=== PATIENT | male | born 1975 | race Caucasian/White ===

== ENCOUNTER 2020-07-09 08:07 | Observation (INO) | payer OTHER, SELFPAY ==
[2017-06-14 11:07] VITALS: BMI 23.7
[2020-07-09] VITALS (22 sets, daily range): BP systolic 108–146; BP diastolic 72–110; PULSE 79–169; RESP 6–22; TEMP 36.2–36.9; O2SAT 90–98; BMI 24.4; BMI 24.1; BMI 24.2
--- NOTE | 2020-07-09 08:18 | RAD_ITS ---
STUDY: X-RAY CHEST REASON FOR EXAM: Male, 44 years old. CHEST PALPITATIONS, HX AFIB TECHNIQUE: PA and lateral views of the chest. COMPARISON: None. FINDINGS: EKG electrodes are seen. The lungs are clear and expanded. Scattered calcified granulomas. There is no demonstrated pleural abnormality. Normal size heart. Normal mediastinum and blanca. Normal visualized pulmonary arteries. Normal visualized aortic arch and descending thoracic aorta. Normal visualized thoracic spine. Normal visualized ribs, clavicles, and shoulders. There is no demonstrated abnormality of the visualized soft tissue structures of the upper abdomen. RAD/Chest 1 View (Portable) IMPRESSION: Normal x-ray examination of the chest. Electronically Signed: Ralph Gomez, at 9:01 EDT , Service support ,
--- NOTE | 2020-07-09 08:19 | ED.DCSUM_ITS ---
History of Present Illness Chief Complaint: Palpitations Informant: Patient Narrative: Patient is a 44-year-old male who presents to the emergency department for palpitations, chest tightness. He states that this has been ongoing for some time now but states that it got much worse this morning. He does have a history of atrial fibrillation and has had these symptoms before in the past. He took himself off of anticoagulation as he did not like how it made him feel. He is not on any rate control medications. He only takes his diabetic medications. He currently denies any shortness of breath. Has not had any leg swelling or calf pain. Denies any recent illness including any cough, cold, congestion. No fevers or chills. Denies any nausea/vomiting or diarrhea. Patient is a current every day smoker. Does admit to drinking 1-2 bottles of wine per day. He states he has gone through withdrawal before in the past. No history of seizures. Denies any lightheadedness or syncopal episodes. Past Medical History - Allergies and Home Meds Allergies/Adverse Reactions: Allergies No Known Allergies Allergy (Verified 07/09/20 08:25) Past Medical History: - - Atrial fibrillation, diabetes, hypertension Smoking Status: Current every day smoker Alcohol: Heavy Drugs: None - Family History Maternal Family History: Reports: Diabetes, Hypertension Paternal Family History: Reports: - - of cocaine overdose Review of Systems All systems negative except as indicated General: Denies: Chills, Fever, Sweats Eyes: Denies: Visual changes - bilaterally, Diplopia ENT: Denies: Rhinorrhea, Sore throat Cardiovascular: Reports: Chest pain, Palpitations, Heart racing Respiratory: Denies: Dyspnea, Cough Gastrointestinal: Denies: Abdominal pain, Nausea, Vomiting, Diarrhea Genitourinary: Denies: Dysuria, Hematuria, Frequency Musculoskeletal: Denies: Back pain, Swelling, Extremity Pain Skin: Denies: Rash, Wounds Neurological: Denies: Headache, Weakness, Numbness Physical Exam Vital Signs/Narrative: Vital Signs Temp Pulse Resp BP Pulse Ox 07/09/20 08:09 97.2 F L 79 22 H 138/110 H 98 Inital Vital Signs reviewed: Yes General: Well nourished, Well developed, - - Patient appears flushed and anxious. Head: Normocephalic, Atraumatic Eyes: Perrl, EOMI ENT: Moist mucous membranes, No rhinorrhea Neck: Supple, Nontender Cardiovascular: No murmurs, Irregular, Tachycardia Respiratory: No distress, CTA bilaterally, Chest nontender Abdomen: Soft, Nontender, Nondistended, Normal bowel sounds Back: Nontender, Normal Inspection Extremities: Nontender, No edema. Negative for: Calf Tenderness Skin: Normal color, No rash Neurological: Alert, Oriented x3, Cranial nerves II-XII grossly intact, Normal Strength, Normal Sensation Psychological: Normal affect, Normal Mood Diagnostic/Tx/Re-eval - EKG Initial EKG Interpretation: - - Rate of 180 bpm and an irregularly irregular rhythm. Otherwise normal intervals. Normal axis. No ST elevations or depressions appreciated. No T wave abnormalities. - Medical Decision Making Patient presents to the ED for palpitations. Upon arrival to the ED his heart rate is in the 180s. He does have a history of atrial fibrillation and took himself off of his anticoagulation. Patient's blood pressure has been stable throughout ED stay. Given a bolus and infusion of Cardizem. This did bring the heart rate down slightly. Was given a second bolus per hospital request. His blood glucose level is slightly high. Liver enzymes are mildly elevated as well.. He does have a history of significant alcohol use and has gone through withdrawal before in the past. Want to be monitored for this. Will bring into the hospital for further evaluation and management. He has been started on a heparin drip as well. - Critical Care Time Critical care time (excluding procedures): 30-74 minutes, Discussing w/Patient &/or Family/Executive Director, Arranging Admission or Transfer, Performing Direct Patient Care at Bedside ED Disposition - Plan for ED Patient: Disposition: Acute Care Hospital [facility] Diagnosis: Atrial fibrillation with RVR, Palpitations, Hyperglycemia, Elevated liver enzymes
[2020-07-09] MEDS: dilTIAZem 25 MG/5 ML Vial 15 MG IV BOLUS ×2 (08:21→11:07)
[2020-07-09] MEDS: 0.9% Normal Saline 1,000 ML 1000 ML IV (08:21)
[2020-07-09 08:38] LABS: Absolute Neutrophil Count 2.9 X10^3/uL (2.0-7.7); Basophil# 0.05 X10^3/uL; Basophil% 0.7 % (0-1); Eosinophil# 0.12 X10^3/uL; Eosinophils% 1.7 % (0-5); Hematocrit 43.7 % (40-54); Mean Corp Hgb Conc 36.6 g/dL (32-36); Mean Corpuscular Hgb 37.1 pg (27.0-32.0); Mean Corpuscular Volume 101.4 fL (80-94); Mean Platelet Vol. 9.8 fl (6.2-12.0); Monocyte# 0.67 X10^3/uL; Monocyte% 9.7 % (0-10); NRBC Flagged by Analyzer 0 % (0-5); Neutrophil # 2.92 X10^3/uL (2.7-7.7); Neutrophil % 42.5 % (47-70); Platelet Count 123 K/mm3 (150-450); RBC Distribution Width SD 44.6 fl (35.1-43.9); Red Blood Count 4.31 M/mm3 (4.6-6.2); White Blood Count 6.9 K/mm3 (4.4-11.0)
[2020-07-09 08:44] LABS: AST(SGOT) 56 U/L (15-37); Alanine Aminotransfer ALT/SGPT 62 U/L (16-61); Albumin, Serum 3.6 g/dL (3.2-5.0); Alkaline Phosphatase 89 U/L (45-117); Anion Gap 10 (5-15); BUN 6 mg/dL (7-18); BUN/Creat Ratio 7.9 RATIO (10-20); Bilirubin, Direct 0.36 mg/dL (0.00-0.30); Chloride 102 mmol/L (98-107); Creatinine, Serum 0.76 mg/dL (0.70-1.30); EST Glomerular Filtration Rate 119 mL/min (>60); Est Glom Filt Rate - Afr Amer 144 mL/min (>60); Estimated Creatinine Clearance 147.21 ml/min; Globulin 4.9 g/dL (2.2-4.2); Glucose 268 mg/dL (74-106); Magnesium 1.6 mg/dL (1.6-2.6); Potassium 3.7 mmol/L (3.5-5.1); Protein, Total 8.5 g/dL (6.4-8.2); Sodium Level 135 mmol/L (136-145)
[2020-07-09] MEDS: Heparin Injection (Vial) 5,000 UNIT/ML VIAL 6000 UNIT IV (08:47)
[2020-07-09 08:49] LABS: International Normalized Ratio 1.1; Prothrombin Time (Protime)PT. 13.6 SECONDS (11.7-14.9)
[2020-07-09 08:50] LABS: Partial Thromboplast Time 27.9 Seconds (24.1-36.2)
--- NOTE | 2020-07-09 10:14 | NURSING ---
[facility] AFIB
[2020-07-09] MEDS: Enoxaparin 100 MG/ML Syringe 90 MG SC ×2 (13:09→22:41)
[2020-07-09] MEDS: Acetaminophen 325 MG Tablet 650 MG PO (13:09)
--- NOTE | 2020-07-09 13:11 | PCM.HP.STD ---
Problem List (1) Atrial fibrillation with RVR Status: Acute (2) Diabetes Status: Chronic Qualifiers: Diabetes mellitus type: type 2 (3) Alcoholism Status: Chronic (4) Thrombocytopenia Status: Chronic (5) Elevated liver enzymes Status: Chronic History of Present Illness Date of Admission: 07/09/20 Chief Complaint: palpitations The patient is a 44 year old M with pmhx pAfib, DMt2, alcoholism drinking approx 2 bottles of wine daily, who presented to the ER with palpitations. He states he had intermittent palpitations for years. He had Afib in the past and an ablation 2 years ago in [facility]. He does not follow a freight manager or take meds for afib. This AM he got out of bed and was lightheaded. 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 He came to the ER and was found to have Afib RVR. He was given 2x15mg bolus of cardizem and started on a cardizem drip however remains tachycardic. He has no further chest pain. He has no SOB. No LE edema. He denies drug use. He smokes about 1 ppd. [] Past Medical History Past Medical History (Chronic Problems): Chronic Problems Elevated liver enzymes (Chronic) Diabetes (Chronic) Alcoholism (Chronic) Thrombocytopenia (Chronic) Allergies No Known Allergies Allergy (Verified 07/09/20 08:25) Home Medications: Ambulatory Orders Medication Instructions Recorded Metformin HCl 1,000 mg PO BID 07/09/20 Nortriptyline HCl [Pamelor] 20 mg PO TID 07/09/20 glipiZIDE [Glucotrol] 10 mg PO DAILY@0730 07/09/20 traZODone [Desyrel] 50 mg PO QHS PRN 07/09/20 Surgical History: - - childhood skin surgery to remove birthmar, Psychiatric History: No pertinent psych hx Lives: Alone Smoking Status: Current every day smoker Tobacco Use: Cigarettes Alcohol: Heavy Drugs: None - *Family History Maternal History Items: Diabetes, Hypertension Paternal History Items: - - of cocaine overdose Review of Systems Constitutional: Denies: Chills, Fever, Weight Change HEENT: Denies: Head Aches, Sinus Congestion, Sinus Drainage Cardiovascular: Reports: Chest Pain, Light Headedness, Palpitations. Denies: Edema Respiratory: Denies: Cough, Shortness of Breath, Shortness of breath at rest, Sputum production Gastrointestinal: Denies: Abdominal Pain, Nausea, Vomiting Genitourinary: Denies: Dysuria Musculoskeletal: Denies: Joint Pain, Joint Tenderness Skin: Denies: Rash, Wounds Neurological: Denies: Numbness, Tingling, Focal weakness Psychiatric: Denies: Anxiety, Depression, Homicidal Ideations, Suicidal Ideations Hematologic/ Lymphatic: Denies: Easy Bruising, Easy Bleeding VTE Information - Inpt Only VTE Present on Admission: No VTE Mechan Device Prophylaxis: None VTE Pharm Prophylaxis ordered?: Yes Patient Problems: Active and Suspected Problems Atrial fibrillation with RVR (Acute) Palpitations (Acute) Hyperglycemia (Acute) - Physical Exam Vitals/I&O's: Vital Signs Temp Pulse Resp BP Pulse Ox 98.1 F 115 H 18 126/76 H 92 07/09/20 11:43 07/09/20 12:20 07/09/20 11:43 07/09/20 11:43 07/09/20 11:43 Oxygen Delivery Method Room Air Weight: 187 lb 13.341 oz Body Mass Index (BMI) 24.1 Intake and Output for Last 24 Hours 07/07/20 07/08/20 07/09/20 23:59 23:59 23:59 Intake Total 1006.50 / 1006.50 Output Total 0 / 0 Balance 1006.50 / 1006.50 General: Alert, Oriented x3, Cooperative HEENT: Atraumatic, PERRLA, EOMI, Normocephalic Neck: Supple, No JVD, Negative Carotid Bruits Lungs: Clear to auscultation, Normal air movement Cardiovascular: No murmurs, Irregular Rate, Tachycardic Abdomen: Bowel Sounds Present, Soft, Non Tender Extremities: No edema, Capillary Refill Less than 3 Seconds Skin: No rashes, No breakdown Musculoskeletal: No Tenderness to Palpation of Joints or Extremities Neurological: Cranial nerves II-XII grossly intact Psych/Mental Status: Normal Affect, Appropriate, Alert and oriented to time, place, person, mood and affect Laboratory Results 07/09/20 08:10: WBC 6.9, RBC 4.31 L, Hgb 16.0, Hct 43.7, MCV 101.4 H, MCH 37.1 H, MCHC 36.6 H, RDW Std Deviation 44.6 H, RDW Coeff of Khoa 12.0, Plt Count 123 L, MPV 9.8, Immature Gran % (Auto) 0.400, Neut % (Auto) 42.5 L, Lymph % (Auto) 45.0 H, Lake % (Auto) 9.7, Eos % (Auto) 1.7, Baso % (Auto) 0.7, Absolute Neuts (auto) 2.9, Absolute Lymphs (auto) 3.10, Nucleated RBC % 0 07/09/20 08:10: Sodium 135 L, Potassium 3.7, Chloride 102, Carbon Dioxide 23.0, Anion Gap 10, BUN 6 L, Creatinine 0.76, Estim Creat Clear Calc 147.21, Est GFR (MDRD) Af Amer 144, Est GFR (MDRD) Non-Af 119, BUN/Creatinine Ratio 7.9 L, Glucose 268 H, Calcium 8.0 L, Magnesium 1.6, Total Bilirubin 0.80, Direct Bilirubin 0.36 H, AST 56 H, ALT 62 H, Alkaline Phosphatase 89, Troponin I < 0.015, Total Protein 8.5 H, Albumin 3.6, Globulin 4.9 H 07/09/20 08:10: PT 13.6, INR 1.1, APTT 27.9 Current Medications Acetaminophen (Tylenol) 650 mg PO Q6H PRN PRN PRN Reason: Pain Score 1-10/Temp > 100.7 F Last Admin: 07/09/20 13:09 Dose: 650 mg Documented by: Enoxaparin Sodium (Lovenox) 90 mg SC Q12 [facility] Glipizide (Glucotrol) 10 mg PO DAILY@0730 [facility] Diltiazem HCl 125 mg/ Dextrose 125 mls @ 5 mls/hr IV .Q25H CARMEN; Protocol Sodium Chloride () 250 mls @ 15 mls/hr IV .[id number] PRN PRN Reason: Saline Flush Sodium Chloride () 250 mls @ 15 mls/hr IV .[id number] PRN PRN Reason: Additional IVPB Infusion Insulin Human Lispro (Humalog Kwikpen (Bkc)) 0 unit SC ACHS CARMEN; Protocol Metformin HCl (Glucophage) 1,000 mg PO BIDCM [facility] Nicotine (Nicoderm Cq (Pbkc)) 21 mg TRANSDERM. DAILY CARMEN Sodium Chloride () 10 - 40 ml IV UD PRN PRN Reason: SALINE FLUSH Assessment/Plan All Active Problems Atrial fibrillation with RVR (Acute) Palpitations (Acute) Hyperglycemia (Acute) 1. pAfib with RVR - ablation 2 years ago in [place] with no follow up car. Ongoing intermittent palpitations since then worse this AM. Pt not on rate control agents. Given IV cardizem x 2 and started on drip. heparin drip changed to lovenox however use with caution with thrombocytopenia. Cardiology consulted. Obtain echo. Mag is low. Trop neg. 2. DMt2 - hold orals, provide SSI. 3. Alcoholism - raises supsicion for holiday heart. CIWA protocol. He drinks at least 2 bottles of wine per day however he is unsure of the quantity as he drinks his wine from a box and is not using actual bottles. Initiate ativan or phenobarb if he becomes symptomatic. Macrocytosis but no anemia, possible folate deficiency given alcoholism - folate/b12 ordered. DVT ppx: lovenox This patient was seen by Romario Bobby PA-C under the supervision of Doctor Feng.
[2020-07-09] MEDS: Insulin Lispro 100 UNIT/ML INSULN.PEN SC ×3 (13:17→22:40)
[2020-07-09 13:26] LABS: Bedside Glucose 217 mg/dL (70-110)
[2020-07-09] MEDS: Ondansetron ODT 4 MG Tablet PO (13:44)
[2020-07-09 14:32] LABS: Vitamin B12 561 pg/mL (211-911)
[2020-07-09 14:43] LABS: Thyroid Stim Hormone (TSH) 1.89 uIU/mL (0.358-3.74)
--- NOTE | 2020-07-09 15:12 | PCM.CONS.C ---
Problem List (1) Atrial fibrillation with RVR Status: Acute (2) Chest pain Status: Acute (3) Hyperglycemia Status: Chronic (4) Alcoholism Status: Chronic Reason for Consult Date of Consultation: 07/09/20 History of Present Illness: The patient is a 44 year old white male with a past cardiovascular history which apparently has included paroxysmal atrial fibrillation with spontaneous conversion to sinus rhythm as well as requirements of synchronized biphasic DC cardioversion to regain sinus rhythm superimposed upon a history of hyperglycemia and alcohol abuse (significant wine intake) who is referred for evaluation of atrial fibrillation and chest discomfort. The patient states that he has undergone evaluation for atrial fibrillation in the past. He believes this occurred at [facility] in [place], [place]. He states that he had an episode where he had spontaneous conversion to sinus rhythm and an episode requiring a synchronized biphasic DC cardioversion to sinus rhythm. He recalls undergoing evaluation with a transthoracic echocardiogram. He does not recall any other cardiovascular testing. 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 He knows he has been going in and out of atrial fibrillation for quite some time. He states he can feel his heart pounding and going fast. He will take a nap and then sometimes wake up and he feels he is back in normal rhythm. 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 He notes this morning while at work as a corporate executive chef he felt his heart rate increase as well as had chest discomfort. Thus he elected to present to the hospital for further evaluation. He was found to be in atrial fibrillation with rapid ventricular response. His troponin I level was negative. His ECG demonstrated atrial fibrillation with rapid ventricular response. He was placed in the PCU for further evaluation and care. He was started on medical management with IV diltiazem and anticoagulant therapy with subcutaneous Lovenox. His heart rate has slowed somewhat but he still remains in atrial fibrillation with episodes of RVR. He notes when he is in atrial fibrillation is when he has his chest discomfort. Otherwise he states he does not necessarily feel chest discomfort or have episodes of shortness of breath or dyspnea. There is been no orthopnea, PND, or peripheral pitting edema. There is been no near syncope or syncope. He states he has been managing his hyperglycemia. He states that he drinks anywhere from 1-2 bottles of wine per day depending upon his stress level . [] Past Medical History Allergies/Adverse Reactions: Allergies No Known Allergies Allergy (Verified 07/09/20 08:25) Home Medications: Ambulatory Orders Medication Instructions Recorded Metformin HCl 1,000 mg PO BID 07/09/20 Nortriptyline HCl [Pamelor] 20 mg PO TID 07/09/20 glipiZIDE [Glucotrol] 10 mg PO DAILY@0730 07/09/20 traZODone [Desyrel] 50 mg PO QHS PRN 07/09/20 Past Medical History (Chronic Problems): Chronic Problems Hyperglycemia (Chronic) Elevated liver enzymes (Chronic) Diabetes (Chronic) Alcoholism (Chronic) Thrombocytopenia (Chronic) Surgical History: - - childhood skin surgery to remove birthmar, Psychiatric History: No pertinent psych hx - *Family History Maternal History Items: Diabetes, Hypertension Paternal History Items: - - of cocaine overdose Lives: Alone Smoking Status: Current every day smoker Tobacco Use: Cigarettes Alcohol: Heavy Drugs: None Review of Systems - Review of Systems General: Denies: Fever, Night Sweats, Fatigue Cardiovascular: Reports: Chest Discomfort, Palpitations. Denies: Shortness of Breath, Orthopnea, PND, Peripheral Edema, Lightheadedness, Dizziness, Near Syncope, Syncope Respiratory: Denies: Cough, Sputum Production, Hemoptysis Gastrointestinal: Denies: Hematemesis, Hematochezia, Melena Genitourinary: Denies: Dysuria, Hematuria Skin: Denies: Rash Subjectve: This is a 44-year-old white male who appears to be resting comfortably at the moment in no acute distress. Objective: Vital Signs Temp Pulse Resp BP Pulse Ox 98.1 F 109 H 19 H 129/96 H 91 07/09/20 11:43 07/09/20 13:09 07/09/20 13:09 07/09/20 13:09 07/09/20 13:09 Oxygen Delivery Method Room Air Weight: 187 lb 13.341 oz Body Mass Index (BMI) 24.1 Intake and Output for Last 24 Hours 07/07/20 07/08/20 07/09/20 23:59 23:59 23:59 Intake Total 1112.08 / 1112.08 Output Total 0 / 0 Balance 1112.08 / 1112.08 General: Awake, Alert, Oriented x 3, Cooperative, No Acute Distress HEENT: Atraumatic, Normocephalic, PERRL, EOMI, Sclera Non Icteric Neck: Supple, Good ROM, No JVD Lungs: Clear to auscultation Cardiovascular: Irregular Rhythm, Normal S1, Normal S2 Vascular: No Carotid Bruits Abdomen: Bowel Sounds Present, Soft, Non Tender Extremities: No Cyanosis, No Clubbing, No edema Neurological: No Focal Motor or Sensory Deficit Psych/Mental Status: Appropriate 07/09/20 08:10: WBC 6.9, RBC 4.31 L, Hgb 16.0, Hct 43.7, MCV 101.4 H, MCH 37.1 H, MCHC 36.6 H, Plt Count 123 L, MPV 9.8, Immature Gran % (Auto) 0.400, Neut % (Auto) 42.5 L, Lymph % (Auto) 45.0 H, [place] % (Auto) 9.7, Eos % (Auto) 1.7, Baso % (Auto) 0.7, Absolute Neuts (auto) 2.9, Nucleated RBC % 0 07/09/20 08:10: Sodium 135 L, Potassium 3.7, Chloride 102, Carbon Dioxide 23.0, Anion Gap 10, BUN 6 L, Creatinine 0.76, Est GFR (MDRD) Af Amer 144, Est GFR (MDRD) Non-Af 119, BUN/Creatinine Ratio 7.9 L, Glucose 268 H, Calcium 8.0 L, Magnesium 1.6, Total Bilirubin 0.80, Direct Bilirubin 0.36 H, Troponin I < 0.015 07/09/20 08:10: PT 13.6, INR 1.1, APTT 27.9 Rhythm: Atrial fibrillation EKG: With RVR ECHO: Pending CXR: Preliminary evaluation: No acute cardiopulmonary disease process appreciated: Please see official report Assessment/Plan 1. Atrial fibrillation with RVR The patient has a history of atrial fibrillation. He states he can tell when his atrial fibrillation comes and goes. He believes this is been happening on and off for quite some time. He has been ignoring it with respect to any further medical evaluation or care. At the present time he remains in atrial fibrillation with episodes of RVR. His initial troponin I level is negative. His ECG demonstrated no acute ECG changes. An echocardiogram is pending. At this time he is on rate control therapy with IV diltiazem. He has been placed on subcutaneous Lovenox therapy for anticoagulation. It may be reasonable to attempt to regain sinus rhythm, as he has been paroxysmal, with the addition of an antiarrhythmic agent. However the choice of an antiarrhythmic agent in this patient, at his age, could include agents such as sotalol, flecainide, or dofetilide. Prior to choosing an antiarrhythmic agent it would be reasonable to further evaluate the patient with a transthoracic echocardiogram to evaluate his LV systolic function and for the possibility of any underlying CAD process with a pharmacologic stress nuclear imaging study. If the patient does not regain sinus rhythm with rate control therapy and an antiarrhythmic agent can be chosen based upon his cardiovascular studies then perhaps this would help him eventually regain and/or maintain sinus rhythm. The patient will need to continue anticoagulant therapy. If the patient does not regain sinus rhythm either with rate control therapy alone or with antiarrhythmic therapy that he would also need to be considered, once he is appropriately anticoagulated, for another attempt at synchronized biphasic DC cardioversion. However he was told that based upon his history this may only be a temporary process. The patient may need to be further evaluated by electrophysiology for consideration for EPS/RFA. The meantime the patient does need to care for his other medical conditions as well as to discontinue his alcohol intake. 2. Hyperglycemia The patient has a history of hyperglycemia. He will need continued evaluation care per internal medicine. 3. Alcohol abuse The patient does intake a significant amount of wine. This may be contributing process to his atrial dysrhythmia. It may also be a contributing process to his laboratory abnormalities such as thrombocytopenia and his elevated hepatic transaminase levels. Patient's case has been discussed and reviewed with the patient as well as with Dr. Feng. This note was generated using a voice recognition system and there may be incorrect words, spelling or punctuation that were not noted when reviewing the office note prior to saving.
[2020-07-09] MEDS: 0.9% Saline Lock 10 ML Syringe IV (15:40)
[2020-07-09] MEDS: Digoxin 250 MCG/ML Ampul 500 MCG IV (15:40)
[2020-07-09] MEDS: metFORMIN HCl 1,000 MG Tablet 1000 MG PO (16:40)
[2020-07-09] MEDS: chlordiazePOXIDE 25 MG Capsule PO ×2 (18:22→22:40)
[2020-07-09] MEDS: Folic Acid 1 MG Tablet PO (18:22)
[2020-07-09] MEDS: Thiamine Hydrochloride 100 MG Tablet PO (18:22)
[2020-07-09] MEDS: proMETHazine 25 MG Tablet 12.5 MG PO (20:02)
[2020-07-09] MEDS: MELATONIN 10 MG TABLET PO (23:32)
[2020-07-10] VITALS (20 sets, daily range): BP systolic 113–145; BP diastolic 70–91; PULSE 70–98; RESP 12–26; TEMP 36.4–36.9; O2SAT 89–97
--- NOTE | 2020-07-10 05:55 | EKG12_ITS ---
Test Reason : AM EKG Blood Pressure : / mmHG Vent. Rate : 078 BPM Atrial Rate : 416 BPM P-R Int : 000 ms QRS Dur : 096 ms QT Int : 412 ms P-R-T Axes : 000 -03 113 degrees QTc Int : 469 ms Atrial fibrillation T wave abnormality, consider lateral ischemia Prolonged QT Abnormal ECG When compared with ECG of 14-JUN-2017 11:25, Atrial fibrillation has replaced Sinus rhythm Inverted T waves have replaced nonspecific T wave abnormality in Lateral leads Confirmed by KRAIG OLSON, ALIVIA ([id number]), order editor KARLOS HALL ([id number]) on 07/15/2020 1:41:25 PM Referred By: LUIS DANIEL Confirmed By:COSME CORNELL MD
[2020-07-10 07:00] LABS: Anion Gap 6 (5-15); BUN 7 mg/dL (7-18); BUN/Creat Ratio 11.8 RATIO (10-20); Calcium,Total 7.7 mg/dL (8.5-10.1); Chloride 100 mmol/L (98-107); Cholesterol 193 mg/dL (200); Creatinine, Serum 0.59 mg/dL (0.70-1.30); EST Glomerular Filtration Rate 158 mL/min (>60); Est Glom Filt Rate - Afr Amer 191 mL/min (>60); Estimated Creatinine Clearance 189.63 ml/min; Glucose 208 mg/dL (74-106); High Density Lipoprotein 38 mg/dL; Magnesium 1.9 mg/dL (1.6-2.6); Potassium 3.4 mmol/L (3.5-5.1); Sodium Level 134 mmol/L (136-145); Triglycerides 328 mg/dL; Very Low Density Lipoprotein 66 mg/dL (5-40)
[2020-07-10 07:15] LABS: Bedside Glucose 181 mg/dL (70-110)
[2020-07-10 07:15] LABS: Bedside Glucose 197 mg/dL (70-110)
[2020-07-10 07:21] LABS: Bedside Glucose 218 mg/dL (70-110)
--- NOTE | 2020-07-10 09:46 | PCM.PN.CARD ---
Subjectve: The patient states he notes his heart rate is decreased. He feels better overall. Objective: Vital Signs Temp Pulse Resp BP Pulse Ox 98.5 F 82 16 135/85 H 94 07/10/20 05:00 07/10/20 08:00 07/10/20 08:00 07/10/20 08:00 07/10/20 08:00 Oxygen Delivery Method Room Air Weight: 187 lb 13.341 oz Body Mass Index (BMI) 24.1 Finger Stick Blood Glucose 2,349 Intake and Output for Last 24 Hours 07/08/20 07/09/20 07/10/20 23:59 23:59 23:59 Intake Total 1843.83 / 1858.83 150.5 / 150.5 Output Total 1000 / 1000 400 / 400 Balance 843.83 / 858.83 -249.5 / -249.5 General: Awake, Alert, Oriented x 3, Cooperative, No Acute Distress HEENT: Atraumatic, Normocephalic, PERRL, EOMI, Sclera Non Icteric Neck: Supple, Good ROM, No JVD Lungs: Clear to auscultation Cardiovascular: Irregular Rhythm, Normal S1, Normal S2 Abdomen: Bowel Sounds Present, Soft Extremities: No edema Neurological: No Focal Motor or Sensory Deficit Psych/Mental Status: Appropriate 07/10/20 06:14: Sodium 134 L, Potassium 3.4 L, Chloride 100, Carbon Dioxide 28.0, Anion Gap 6, BUN 7, Creatinine 0.59 L, Est GFR (MDRD) Af Amer 191, Est GFR (MDRD) Non-Af 158, BUN/Creatinine Ratio 11.8, Glucose 208 H, Calcium 7.7 L, Magnesium 1.9, Triglycerides 328 H, Cholesterol 193, LDL Cholesterol 89, VLDL Cholesterol 66 H, HDL Cholesterol 38 L Rhythm: Atrial fibrillation EKG: Atrial fibrillation; nonspecific T wave abnormality ECHO: Left ventricular systolic function is normal. The estimated ejection fraction is 60 %. Moderate concentric left ventricular hypertrophy. There is mild mitral annular calcification. Extension of the mitral annular calcification on the base of the posterior mitral valve leaflet. The left atrium is mildly enlarged. Mild (1+) mitral valve insufficiency. Mild tricuspid valve insufficiency. Mild focal aortic valve calcification. Mild (1+) eccentric aortic valve insufficiency. Right ventricular systolic pressure estimated to be 22 mmHg. Unable to assess diastolic dysfunction. Stress Test: Pending Medical Necessity - Tobacco Use Smoking Status: Current every day smoker Tobacco Use: Cigarettes Assessment/Plan 1. Atrial fibrillation with RVR The patient has a history of atrial fibrillation. He states he can tell when his atrial fibrillation comes and goes. He believes this is been happening on and off for quite some time. He has been ignoring it with respect to any further medical evaluation or care. At the present time he remains in atrial fibrillation. His initial troponin I level is negative. His ECG demonstrated no acute ECG changes. His echocardiogram is as noted. At this time he is on rate control therapy with IV diltiazem. He has been placed on subcutaneous Lovenox therapy for anticoagulation. The patient is proceeding with further evaluation with a pharmacologic stress nuclear imaging study based upon his concerns of his atrial dysrhythmia and his chest discomfort. Depending upon the findings he may or may not need further evaluation with diagnostic cardiac catheterization. In the interim he will continue medical therapy with attempt to convert his IV diltiazem to oral diltiazem. Going forward, depending upon his cardiac catheterization findings, his options may include rate control therapy and anticoagulant therapy and future attempt at synchronized biphasic DC cardioversion as well as outpatient EP consultation for possible EPS/RFA. The addition of antiarrhythmic therapy is an option although there may be some concern with respect to this based on the patient's alcohol intake. 2. Hyperglycemia The patient has a history of hyperglycemia. He will need continued evaluation care per internal medicine. 3. Alcohol abuse The patient does intake a significant amount of wine. This may be contributing process to his atrial dysrhythmia. It may also be a contributing process to his laboratory abnormalities such as thrombocytopenia and his elevated hepatic transaminase levels. He patient's case has been discussed and reviewed with the patient as well as with Dr. Feng. This note was generated using a voice recognition system and there may be incorrect words, spelling or punctuation that were not noted when reviewing the office note prior to saving.
--- NOTE | 2020-07-10 10:08 | STRESSREP_ITS ---
Stress Test Report Date: 07-10-2020 Procedure: Pharmacologic stress nuclear imaging study Indications: Atrial fibrillation; chest pain Consent: Per the patient Procedure: The patient underwent pharmacologic (Regadenoson) evaluation with a peak heart rate of 103 beats per minute (57 %predicted maximal heart rate) and a peak blood pressure of 122/74 mmHg. The baseline ECG demonstrated atrial fibrillation; nonspecific T wave abnormality. The peak pharmacologic ECG demonstrated no obvious ECG changes. There was a rare PVC during recovery. There was no complaint of chest discomfort during pharmacologic infusion or recovery. The examination was discontinued secondary to completion of protocol. Impression: 1. Pharmacologic (Regadenoson) evaluation 2. Peak pharmacologic ECG with continued atrial fibrillation with nonspecific T wave abnormality. 3. There were no cardiac dysrhythmias pretest, during pharmacologic infusion, or recovery. 4. Nuclear images pending Myocardial perfusion imaging study: Technique: The patient was injected with 12.0 millicuries of technetium 99m Cardiolite and subsequently rest SPECT Cardiolite nuclear imaging was obtained in the horizontal long, vertical long, and short axis views. The patient underwent pharmacologic (Regadenoson) evaluation with a peak heart rate of 103 beats per minute (57 % percent predicted maximal heart rate) and a peak blood pressure of 122/74 mmHg. The patient was injected with 33.2 millicuries of technetium 99m Cardiolite and subsequently stress SPECT Cardiolite nuclear imaging was obtained in the horizontal long, vertical long, and short axis views. A gated Cardiolite study at peak stress was obtained. Interpretation: Rest and stress SPECT Cardiolite nuclear imaging status post realignment, normalization, and attenuation correction demonstrate a small area of subtle diminished tracer uptake near the inferior apical segments without significant change between rest and stress. There is end systolic thickening and brightening. The gated Cardiolite study demonstrates myocardial thickening and inward wall motion. The reported LVEF is 53 %. Impression: 1. Rest and stress myocardial imaging demonstrate myocardial perfusion changes appearing compatible with the effects of physiologic apical thinning with no myocardial perfusion changes considered diagnostic for associated stress-induced myocardial ischemia. 2. The gated Cardiolite study reports an LVEF of 53 %. This note was generated with [employer] software. It may contain incorrect words, spelling, and punctuation that were not noted in checking the note before signing.
[2020-07-10] MEDS: metFORMIN HCl 1,000 MG Tablet 1000 MG PO (11:31)
[2020-07-10] MEDS: Folic Acid 1 MG Tablet PO (11:31)
[2020-07-10] MEDS: Thiamine Hydrochloride 100 MG Tablet PO (11:32)
[2020-07-10] MEDS: dilTIAZem CD 240 MG Capsule PO (11:32)
[2020-07-10] MEDS: chlordiazePOXIDE 25 MG Capsule PO ×2 (11:33→13:48)
[2020-07-10] MEDS: Insulin Lispro 100 UNIT/ML INSULN.PEN SC (11:34)
--- NOTE | 2020-07-10 12:59 | CASEMGMT ---
Pt to be sent home on xarelto at discharge and med e-scribed to [facility] retail pharmacy. Per navin Campos, pt's co-pay will be $50 but co-pay card to be applied. Daryl SCOTT CM
--- NOTE | 2020-07-10 13:02 | CASEMGMT ---
Assessment- SW completed assessment with patient at bedside. SW also verified patient and his contacts addresses and phone numbers. Living situation- Patient lives with his mom in a 1 story home. PCP: Patient does not have one, but SW did give him a list of primary care doctors Specialists: He has been seeing someone with [facility] for his alcohol use. Pharmacy: [facility] in [place]. He wants [facility] Pharmacy at d/c DME: None ADL's/IADL's: Independent Past SNF/rehab: None Past HH: None LW: None POA: None Plan: Patient is independent and does not have any discharge needs. 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 He is already talking with a counselor from [facility] for his alcohol use as he got a DUI. JIMBO gave him a PCP list. JIMBO also explained that the RN CM will check on the cost of his blood thinner before he leaves. Leonor ZAFAR TOMATO GRADER
[2020-07-10 13:06] LABS: Bedside Glucose 241 mg/dL (70-110)
[2020-07-10] MEDS: Enoxaparin 100 MG/ML Syringe 90 MG SC (13:48)
[2020-07-10] MEDS: 0.9% Saline Lock 10 ML Syringe IV (14:01)
--- NOTE | 2020-07-10 14:42 | PCM.DC.SUM ---
Discharge Date and Diagnosis - Problem List Patient Problems: Active and Suspected Problems Atrial fibrillation with RVR (Acute) Palpitations (Acute) Chest pain (Acute) Date of Admission: 07/09/20 Date of Discharge: 07/10/20 - Primary Discharge Diagnosis Acute Problems: Active Problems Atrial fibrillation with RVR (Acute) Palpitations (Acute) Chest pain (Acute) - Secondary Discharge Diagnosis Chronic Problems: Chronic Problems Hyperglycemia (Chronic) Elevated liver enzymes (Chronic) Diabetes (Chronic) Alcoholism (Chronic) Thrombocytopenia (Chronic) Hospital Course and Treatment Imaging Results: 07/10/20 05:55 Nuclear Stress Test - Chemical [NM] AM (NON MEDS) Interpretation: Rest and stress SPECT Cardiolite nuclear imaging status post realignment, normalization, and attenuation correction demonstrate a small area of subtle diminished tracer uptake near the inferior apical segments without significant change between rest and stress. There is end systolic thickening and brightening. The gated Cardiolite study demonstrates myocardial thickening and inward wall motion. The reported LVEF is 53 %. Impression: 1. Rest and stress myocardial imaging demonstrate myocardial perfusion changes appearing compatible with the effects of physiologic apical thinning with no myocardial perfusion changes considered diagnostic for associated stress-induced myocardial ischemia. 2. The gated Cardiolite study reports an LVEF of 53 %. 2D TTE: EF 60% mod LVH mild mitral annular calcification 1+ MVI mild TVI Mild focal AV calcification 1+ FOREST RVSP 22 mmHg RAD/Chest 1 View (Portable) IMPRESSION: Normal x-ray examination of the chest. [facility] Procedures: 2-D Echocardiogram, Stress test Summary of Care Provided: Hospital Course: The patient is a 44 year old M with pmhx of pAfib with prior cardioversion alcoholism, nicotine abuse, and DMt2 who presented to the ER with palpitations and CP. He was found to be in Afib with RVR. He was not on any rate control medications and did not follow a dismantler. He was given IV cardizem and admitted to PCU. Cardiology was consulted. Echo was obtained with results as above, preserved EF. He was taken for a stress test which was negative. He was transitioned successfully from cardizem drip to po cardizem. He was placed on xarelto for anticoagulation. He developed alcohol withdrawal while here and was treated with Librium. He drinks at least 2 bottles of wine per day and smokes about 1 ppd. He was discharged home in stable condition. He will need follow up with a PCP in 1-2 weeks and with cardiology as directed. This patient was seen by Romario Bobby PA-C under the supervision of Dr. Feng. [] Patient Problems: Active and Suspected Problems Atrial fibrillation with RVR (Acute) Palpitations (Acute) Chest pain (Acute) - Physical Exam Vitals/I&O's: Vital Signs Temp Pulse Resp BP Pulse Ox 98.2 F 89 21 H 133/80 H 96 07/10/20 11:12 07/10/20 13:50 07/10/20 13:50 07/10/20 13:50 07/10/20 13:50 Oxygen Delivery Method Room Air Weight: 187 lb 13.341 oz Body Mass Index (BMI) 24.1 Finger Stick Blood Glucose 2,349 Intake and Output for Last 24 Hours 07/08/20 07/09/20 07/10/20 23:59 23:59 23:59 Intake Total 1843.83 / 1858.83 344.25 / 344.25 Output Total 1000 / 1000 400 / 400 Balance 843.83 / 858.83 -55.75 / -55.75 General: Alert, Oriented x3, Cooperative HEENT: Atraumatic, PERRLA, EOMI, Normocephalic Neck: Supple, No JVD, Negative Carotid Bruits Lungs: Clear to auscultation, Normal air movement Cardiovascular: Regular rate, No murmurs, Irregular Rate Abdomen: Bowel Sounds Present, Soft, Non Tender Extremities: No edema, Capillary Refill Less than 3 Seconds Skin: No rashes, No breakdown Musculoskeletal: No Tenderness to Palpation of Joints or Extremities Neurological: Cranial nerves II-XII grossly intact Psych/Mental Status: Normal Affect, Appropriate, Alert and oriented to time, place, person, mood and affect Laboratory Results 07/09/20 08:10: Folate 7.40, TSH 1.89 07/09/20 16:39: POC Glucose 197 H 07/09/20 22:38: POC Glucose 181 H 07/10/20 06:14: Sodium 134 L, Potassium 3.4 L, Chloride 100, Carbon Dioxide 28.0, Anion Gap 6, BUN 7, Creatinine 0.59 L, Estim Creat Clear Calc 189.63, Est GFR (MDRD) Af Amer 191, Est GFR (MDRD) Non-Af 158, BUN/Creatinine Ratio 11.8, Glucose 208 H, Calcium 7.7 L, Magnesium 1.9, Triglycerides 328 H, Cholesterol 193, LDL Cholesterol 89, VLDL Cholesterol 66 H, HDL Cholesterol 38 L 07/10/20 06:33: POC Glucose 218 H 07/10/20 11:26: POC Glucose 241 H Current Medications Acetaminophen (Tylenol) 650 mg PO Q6H PRN PRN PRN Reason: Pain Score 1-10/Temp > 100.7 F Last Admin: 07/09/20 13:09 Dose: 650 mg Documented by: Chlordiazepoxide (Librium) 25 mg PO 4X/DAY [facility] Last Admin: 07/10/20 13:48 Dose: 25 mg Documented by: Enoxaparin Sodium (Lovenox) 90 mg SC Q12 [facility] Last Admin: 07/10/20 13:48 Dose: 90 mg Documented by: Folic Acid (Folic Acid) 1 mg PO DAILY@0800 [facility] Last Admin: 07/10/20 11:31 Dose: 1 mg Documented by: Glipizide (Glucotrol) 10 mg PO BIDAC [facility] Diltiazem HCl 125 mg/ Dextrose 125 mls @ 5 mls/hr IV .Q25H [facility]; Protocol Last Titration: 07/10/20 13:50 Dose: 0 mg/hr, 0 mls/hr Documented by: Sodium Chloride () 250 mls @ 15 mls/hr IV .[id number] PRN PRN Reason: Saline Flush Sodium Chloride () 250 mls @ 15 mls/hr IV .[id number] PRN PRN Reason: Additional IVPB Infusion Insulin Human Lispro (Humalog Kwikpen (Bkc)) 0 unit SC ACHS [facility]; Protocol Last Admin: 07/10/20 11:34 Dose: 4 units Documented by: Melatonin (Melatonin) 10 mg PO QHS PRN PRN Reason: insomnia Last Admin: 07/09/20 23:32 Dose: 10 mg Documented by: Metformin HCl (Glucophage) 1,000 mg PO BIDCM [facility] Last Admin: 07/10/20 11:31 Dose: 1,000 mg Documented by: Nicotine (Nicoderm Cq (Pbkc)) 21 mg TRANSDERM. DAILY [facility] Last Admin: 07/10/20 11:34 Dose: Not Given Documented by: Ondansetron HCl (Zofran Odt) 4 mg PO Q6H PRN PRN PRN Reason: NAUSEA Last Admin: 07/09/20 13:44 Dose: 4 mg Documented by: Promethazine HCl (Phenergan Tablet) 12.5 mg PO Q6H PRN PRN PRN Reason: NAUSEA/VOMITING Last Admin: 07/09/20 20:02 Dose: 12.5 mg Documented by: Sodium Chloride () 10 - 40 ml IV UD PRN PRN Reason: SALINE FLUSH Last Admin: 07/10/20 14:01 Dose: 10 ml Documented by: Thiamine HCl (Vitamin B1) 100 mg PO DAILYCM [facility] Last Admin: 07/10/20 11:32 Dose: 100 mg Documented by: Discharge Diet: Low fat/ Low Cholesterol, 2000 mg Sodium Diet Discharge Activity: Return to Normal Activity Home Medications: Medications to take at Discharge Metformin HCl 1,000 mg PO BID 07/09/20 Nortriptyline HCl [Pamelor] 20 mg PO TID 07/09/20 traZODone [Desyrel] 50 mg PO QHS PRN 07/09/20 Diltiazem CD [Cardizem CD] 240 mg PO DAILY #30 cap 07/10/20 Rivaroxaban [Xarelto] 20 mg PO DAILY #30 tab 07/10/20 glipiZIDE [Glucotrol] 10 mg PO BIDAC #60 tab 07/10/20 Following Prescriptions Were Given to Patient: Diltiazem CD [Cardizem CD] 240 mg PO DAILY #30 cap Transmission Status: Received by [facility] glipiZIDE [Glucotrol] 10 mg PO BIDAC #60 tab Transmission Status: Received by [facility] Rivaroxaban [Xarelto] 20 mg PO DAILY #30 tab Transmission Status: Received by [facility] Primary Care Physician: NOT,DEFINED [NON-STAFF] - Please follow up with your Primary Care Physician in: 1-2 weeks Please Follow Up With: Levy Tierney MD When: as directed Disposition: Home Minutes spent on discharge:: 35 Patient Condition:: Stable Medical Necessity - Tobacco Use Smoking Status: Current every day smoker Tobacco Use: Cigarettes Meaningful Use Info Meaningful Use Diagnoses (Choose all that apply): None applicable
--- NOTE | 2020-07-10 14:45 | PCM.DC ---
- Discharge Diagnoses Current Active Problems: Current Active and Chronic Problems Atrial fibrillation with RVR (Acute) Palpitations (Acute) Hyperglycemia (Chronic) Elevated liver enzymes (Chronic) Diabetes (Chronic) Alcoholism (Chronic) Thrombocytopenia (Chronic) Chest pain (Acute) You will use the following diet at home:: Cardiac Your food should be the consistency of: Regular Your liquids should be the consistency of: Regular/Thin Discharge Activity: Return to Normal Activity Call your doctor if you observe: Shortness of breath, Dizziness, Chest pain, Increased palpitations (irregular heartbeat) Allergies/Adverse Reactions: Allergies No Known Allergies Allergy (Unverified 07/09/20 08:25) Medications to take at Discharge Metformin HCl 1,000 mg PO BID 07/09/20 Nortriptyline HCl [Pamelor] 20 mg PO TID 07/09/20 traZODone [Desyrel] 50 mg PO QHS PRN 07/09/20 Diltiazem CD [Cardizem CD] 240 mg PO DAILY #30 cap 07/10/20 Rivaroxaban [Xarelto] 20 mg PO DAILY #30 tab 07/10/20 glipiZIDE [Glucotrol] 10 mg PO BIDAC #60 tab 07/10/20 The following prescriptions were given: Diltiazem CD [Cardizem CD] 240 mg PO DAILY #30 cap Transmission Status: Received by [facility] glipiZIDE [Glucotrol] 10 mg PO BIDAC #60 tab Transmission Status: Received by [facility] Rivaroxaban [Xarelto] 20 mg PO DAILY #30 tab Transmission Status: Received by [facility] Primary Care Physician: NOT,DEFINED [NON-STAFF] - Please follow up with your Primary Care Physician in: 1-2 weeks Test Results: Test results from this visit will be discussed in further detail at your follow-up appointment, if applicable. Please Follow Up With: Levy Tierney MD When: as directed Proposed Discharge Date: 07/10/20
== END 2020-07-10 16:22 | disposition home or self-care (01) | DRG 309 ==
LOC: ED 09:11 → PCU 15:55
PROVIDERS: Physician Assistant; Admitting Provider Internal Medicine; Emergency Provider Emergency Medicine; Visit Provider Internal Medicine
DX: I48.0 Paroxysmal atrial fibrillation (principal); F10.239 Alcohol dependence with withdrawal, unspecified; E11.65 Type 2 diabetes mellitus with hyperglycemia; I10 Essential (primary) hypertension; D69.6 Thrombocytopenia, unspecified; D75.89 Other specified diseases of blood and blood-forming organs; F17.210 Nicotine dependence, cigarettes, uncomplicated; Z91.14 Patient's other noncompliance with medication regimen; Z79.84 Long term (current) use of oral hypoglycemic drugs; Z79.899 Other long term (current) drug therapy; R74.8 Abnormal levels of other serum enzymes; R94.31 Abnormal electrocardiogram [ECG] [EKG]
CPT/HCPCS: 36415; 71045; 78452; 80048; 80061; 80076; 82607; 82746; 82962; 83735; 84443; 84484; 85025; 85610; 85730; 93005; 93017; 93306; 96365; 96366; 96367; 96372; 96375; 96376; 99218; 99285; 99406; A9500; J7030; A4216; G0378; J2785